=== PATIENT | male | born 1985 | race Caucasian/White ===

== ENCOUNTER 2018-04-23 20:40 | Emergency (ER) | payer OTHER ==
[~2018-04-23] VITALS: Ht 175.3 cm; Wt 74.8 kg
--- NOTE | 2018-04-23 20:45 | NUR ---
32YO male bb self. 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 patient denies SOB, N/V or any other medical complaints. patient assisted to er bed, skin warmn and dry, resp even and unlabored. 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 awaiting orders from provider, will continue to monitor
--- NOTE | 2018-04-23 20:51 | NUR ---
MD Duboism at bed side for eval
[2018-04-23] MEDS ORDERED: MECLIZINE HCL 25 MG TABLET ONE (21:04)
--- NOTE | 2018-04-23 21:11 | NUR ---
MEDICATED PT ORDERED
--- NOTE | 2018-04-23 21:12 | NUR ---
20g left ac iv started, blood sample obtained and sent to lab
[2018-04-23 21:13] LABS: BASOPHILS # (AUTO) 0.1 /CMM (0.0-0.2); BASOPHILS % (AUTO) 1.3 % (0.0-2.0); EOSINOPHILS % (AUTO) 1.1 % (0.0-6.0); HEMATOCRIT 45 % (39-51); HEMOGLOBIN 16.2 g/dL (13.5-17.5); LYMPHOCYTES # (AUTO) 1.9 /CMM (0.8-4.8); LYMPHOCYTES % (AUTO) 18.6 % (20.0-44.0); MEAN CORPUSCULAR HEMOGLOBIN 31 PG (26.0-33.0); MEAN CORPUSCULAR HGB CONC 36 g/dl (31.0-36.0); MEAN CORPUSCULAR VOLUME 87 fL (80-96); MONOCYTES # (AUTO) 0.5 /CMM (0.1-1.30); MONOCYTES % (AUTO) 5.1 % (2.0-12.0); NEUTROPHILS # (AUTO) 7.6 /CMM (1.8-8.9); NEUTROPHILS % (AUTO) 73.9 % (43.0-81.0); PLATELET COUNT (AUTO) 179 /CMM (150-450); RDW COEFFICIENT OF VARIATION 11.6 (11.5-15.0); RED BLOOD CELL COUNT(AUTO) 5.21 MIL/uL (4.5-6.0); WHITE BLOOD COUNT (AUTO) 10.2 K/uL (4.3-11.0)
[2018-04-23 21:23] LABS: CALCIUM, SERUM 9.4 mg/dL (8.5-10.1); CARBON DIOXIDE 29 mmol/L (21-32); CHLORIDE 105 mmol/L (98-107); CREATININE 0.8 mg/dL (0.6-1.3); GLUCOSE 108 mg/dL (74-106); POTASSIUM 3.9 mmol/L (3.5-5.1); SODIUM SERUM 140 mmol/L (136-145); UREA NITROGEN, BLOOD 9 mg/dL (7-18)
[2018-04-23 21:27] LABS: INR 0.95 (0.85-1.15)
[2018-04-23] MEDS ORDERED: MECLIZINE HCL 25 MG TABLET PO ONE (21:30)
[2018-04-23 21:32] LABS: TROPONIN I < 0.017 ng/mL (0.00-0.056)
--- NOTE | 2018-04-23 21:36 | NUR ---
patient is pain free at this time, no distress noted. patient complains of dizzyness
[2018-04-23 21:54] VITALS: BP 147/78
--- NOTE | 2018-04-23 21:55 | NUR ---
Patient discharged to home in stable condition. Written and verbal after care instructions given. Patient verbalizes understanding of instruction. pt ambulatory with a steady gait VITAL SIGNS WITHIN NORMAL LIMITS.IV removed. Catheter intact and site benign. Pressure and 4x4 applied to site. No bleeding noted.
== END 2018-04-23 21:55 | disposition home or self-care (01) ==
LOC: ER 20:43
DX: R42 Dizziness and giddiness (principal); R07.2 Precordial pain; F17.210 Nicotine dependence, cigarettes, uncomplicated
CPT/HCPCS: 36415; 70450-TC; 71045-TC; 80048-TC; 84484-TC; 85025-TC; 85730-TC; A4606; J8597; Z7610

== ENCOUNTER 2018-07-20 03:59 | Emergency (ER) | payer OTHER ==
[~2018-07-20] VITALS: Ht 172.7 cm; Wt 81.6 kg
[2018-07-20 04:19] VITALS: BP 132/82
--- NOTE | 2018-07-20 04:21 | NUR ---
PATIENT AMBULATORY TO ER BED 10. BIBFAMILY C/O CP NONRADIATING X 3 HRS. NO CARDAIC HX NOTED. PATIENT STATES HE HAS HAD SEVERAL "PANIC ATTACKS" TONIGHT AND TOOK HIS MOTHER ATENOLOL 0.5 MG AT 0100. HE STATES HIS B/P WAS SYSTOLIC IN THE 180'S. 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 VSS/RESP EVEN UNLABORED/NAD NOTED/SKIN WARM AND DRY/AFEBRILE/ DENIES N-V-D/AOX4. AWAITNG MD TRONCOSO.
[2018-07-20] MEDS ORDERED: LORAZEPAM 1 MG TABLET PO ONE (04:30)
[2018-07-20] MEDS ORDERED: LORAZEPAM 1 MG TABLET ONE (04:34)
== END 2018-07-20 04:52 | disposition home or self-care (01) ==
LOC: ER 04:02
DX: F41.0 Panic disorder [episodic paroxysmal anxiety] (principal); F17.200 Nicotine dependence, unspecified, uncomplicated
CPT/HCPCS: A4606; Z7610

== ENCOUNTER 2019-03-05 19:25 | Emergency (ER) | payer OTHER ==
[~2019-03-05] VITALS: Ht 172.7 cm; Wt 81.6 kg
--- NOTE | 2019-03-05 19:36 | NUR ---
PT AMBULATORY TO ER BED 09. C/O HEADACHE AND HIGH BLOOD PRESSURE SINCE THIS AM. PT PLACED ON MONITOR. STABLE VITALS AT THIS TIME. AWAITING MD TRONCOSO.
--- NOTE | 2019-03-05 19:48 | NUR ---
GAELP PA AT BEDSIDE FOR EVAL.
--- NOTE | 2019-03-05 20:02 | NUR ---
FILAMENT CUTTER AT BEDSIDE FOR BLOOD DRAW.
[2019-03-05 20:09] LABS: BASOPHILS % (AUTO) 0.5 % (0.0-2.0); EOSINOPHILS % (AUTO) 0.9 % (0.0-6.0); HEMATOCRIT 44 % (39-51); HEMOGLOBIN 15.3 g/dL (13.5-17.5); LYMPHOCYTES # (AUTO) 1.5 /CMM (0.8-4.8); LYMPHOCYTES % (AUTO) 16.7 % (20.0-44.0); MEAN CORPUSCULAR HGB CONC 35 g/dl (31.0-36.0); MEAN CORPUSCULAR VOLUME 88 fL (80-96); MONOCYTES # (AUTO) 0.4 /CMM (0.1-1.30); MONOCYTES % (AUTO) 4.5 % (2.0-12.0); NEUTROPHILS # (AUTO) 7.2 /CMM (1.8-8.9); NEUTROPHILS % (AUTO) 77.4 % (43.0-81.0); PLATELET COUNT (AUTO) 183 /CMM (150-450); RED BLOOD CELL COUNT(AUTO) 5.02 MIL/uL (4.5-6.0); WHITE BLOOD COUNT (AUTO) 9.3 K/uL (4.3-11.0)
[2019-03-05 20:15] LABS: CALCIUM, SERUM 9.4 mg/dL (8.5-10.1); CARBON DIOXIDE 26 mmol/L (21-32); CHLORIDE 104 mmol/L (98-107); CREATININE 0.6 mg/dL (0.6-1.3); GLUCOSE 109 mg/dL (74-106); POTASSIUM 3.5 mmol/L (3.5-5.1); SODIUM SERUM 141 mmol/L (136-145); UREA NITROGEN, BLOOD 5 mg/dL (7-18)
--- NOTE | 2019-03-05 21:28 | NUR ---
REPORT TO JONATHAN TOSCANO FOR LORE.
[2019-03-05] MEDS ORDERED: IV NS 0.9% 1,000 ML BAG IV ONE (21:30)
[2019-03-05 23:38] VITALS: BP 118/70
--- NOTE | 2019-03-05 23:38 | NUR ---
Patient discharged to home in stable condition. Written and verbal after care instructions given. Patient verbalizes understanding of instruction. IV removed. Catheter intact and site benign. Pressure and 4x4 applied to site. No bleeding noted.
== END 2019-03-05 23:39 | disposition home or self-care (01) ==
LOC: ER 19:31
DX: R07.89 Other chest pain (principal); R00.2 Palpitations; R94.31 Abnormal electrocardiogram [ECG] [EKG]; I10 Essential (primary) hypertension; F41.9 Anxiety disorder, unspecified; F17.200 Nicotine dependence, unspecified, uncomplicated; I45.10 Unspecified right bundle-branch block
CPT/HCPCS: 36415; 71045; 80048; 84484; 85025; 93005; 99284; J7030

== ENCOUNTER 2019-03-11 19:43 | Emergency (ER) | payer OTHER ==
[~2019-03-11] VITALS: Ht 172.7 cm; Wt 81.6 kg
[2019-03-11 19:57] VITALS: BP 170/103
[2019-03-11 20:27] LABS: BASOPHILS # (AUTO) 0.1 /CMM (0.0-0.2); BASOPHILS % (AUTO) 0.9 % (0.0-2.0); EOSINOPHILS % (AUTO) 1.1 % (0.0-6.0); HEMATOCRIT 45 % (39-51); LYMPHOCYTES # (AUTO) 1.8 /CMM (0.8-4.8); LYMPHOCYTES % (AUTO) 23.3 % (20.0-44.0); MEAN CORPUSCULAR HGB CONC 35 g/dl (31.0-36.0); MEAN CORPUSCULAR VOLUME 89 fL (80-96); MONOCYTES # (AUTO) 0.5 /CMM (0.1-1.30); MONOCYTES % (AUTO) 6.1 % (2.0-12.0); NEUTROPHILS # (AUTO) 5.5 /CMM (1.8-8.9); NEUTROPHILS % (AUTO) 68.6 % (43.0-81.0); PLATELET COUNT (AUTO) 203 /CMM (150-450); WHITE BLOOD COUNT (AUTO) 7.9 K/uL (4.3-11.0)
--- NOTE | 2019-03-11 20:32 | NUR ---
PT REFUSES IMAGING. NOTIFIED
[2019-03-11 20:43] LABS: ALANINE AMINOTRANSFERASE 37 U/L (12-78); ALBUMIN 4.4 g/dL (3.4-5.0); ALKALINE PHOSPHATASE 69 U/L (46-116); ASPARTATE AMINOTRANSFERASE 15 U/L (15-37); BILIRUBIN,DIRECT 0.1 mg/dL (0.0-0.2); BILIRUBIN,TOTAL 0.4 mg/dL (0.2-1.0); CARBON DIOXIDE 28 mmol/L (21-32); CHLORIDE 103 mmol/L (98-107); CREATININE 0.6 mg/dL (0.6-1.3); GLUCOSE 100 mg/dL (74-106); POTASSIUM 3.8 mmol/L (3.5-5.1); SODIUM SERUM 141 mmol/L (136-145); TOTAL PROTEIN, SERUM 7.9 g/dL (6.4-8.2); UREA NITROGEN, BLOOD 6 mg/dL (7-18)
== END 2019-03-11 21:10 | disposition home or self-care (01) ==
LOC: ER 19:43
DX: I10 Essential (primary) hypertension (principal); F17.200 Nicotine dependence, unspecified, uncomplicated
CPT/HCPCS: 36415; 80048-TC; 80076-TC; 84484-TC; 85025-TC; 85730-TC

== ENCOUNTER 2019-04-02 01:28 | Emergency (ER) | payer OTHER ==
[~2019-04-02] VITALS: Ht 172.7 cm; Wt 81.6 kg
--- NOTE | 2019-04-02 01:44 | NUR ---
BIBS FOR C/O PALPITATION. REPORTED " A LOT OF PVCs AND WS TOLD BY HIS PCP TO COME TO THE ER" PT WAS PLACED ON A MONITOR ,VSS. WILL CONT TO MONITOR ,
--- NOTE | 2019-04-02 02:10 | NUR ---
microbiology lab technician at the bed side
--- NOTE | 2019-04-02 02:25 | NUR ---
PT REFUSED CXR. AWARE
[2019-04-02 02:30] LABS: CALCIUM, SERUM 9.3 mg/dL (8.5-10.1); CREATININE 0.6 mg/dL (0.6-1.3); POTASSIUM 4.5 mmol/L (3.5-5.1)
--- NOTE | 2019-04-02 03:19 | NUR ---
Patient discharged to home in stable condition. Written and verbal after care instructions given. Patient verbalizes understanding of instruction.
[2019-04-02 03:20] VITALS: BP 109/77
== END 2019-04-02 03:21 | disposition home or self-care (01) ==
LOC: ER 01:29
DX: R00.2 Palpitations (principal); F17.200 Nicotine dependence, unspecified, uncomplicated; F41.9 Anxiety disorder, unspecified; I10 Essential (primary) hypertension
CPT/HCPCS: 36415; 80048-TC

== ENCOUNTER 2019-04-15 11:51 | Emergency (ER) | payer OTHER ==
[~2019-04-15] VITALS: Ht 172.7 cm; Wt 81.6 kg
--- NOTE | 2019-04-15 12:03 | NUR ---
PT BIB SELF C/O L SIDED CHEST PAIN, PALPITATION, ON AND OFF X 5 MONTHS, PT IS AAOX4, NOT IN RESPIRATORY DISTRESS, V/S STABLE, KEPT RESTED AND COMFORTABLE, WILL CONTINUE TO MONITOR.
--- NOTE | 2019-04-15 12:20 | NUR ---
SEEN AND EXAMINED BY AFTAB A[place]IN
--- NOTE | 2019-04-15 12:46 | NUR ---
ER PHLEB AT BEDSIDE FOR BLOOD DRAW.
--- NOTE | 2019-04-15 12:50 | NUR ---
Usama baltazar in ED - 04/15/19 at 1314 by SCOTTY [employer]UCK RENTAL SERVICE ATTENDANT AT [facility] FOR XRAY.
[2019-04-15 13:13] LABS: CALCIUM, SERUM 8.9 mg/dL (8.5-10.1); CREATININE 0.6 mg/dL (0.6-1.3); POTASSIUM 4.1 mmol/L (3.5-5.1)
--- NOTE | 2019-04-15 13:38 | NUR ---
Patient discharged to home in stable condition. Written and verbal after care instructions given. Patient verbalizes understanding of instruction.
[2019-04-15 13:40] VITALS: BP 146/87
[2019-04-15] MEDS ORDERED: IOHEXOL-350 100 ML VIAL IV ONE (21:16)
[2019-04-15] MEDS ORDERED: IV NS 0.9% 250 ML IV ONE (21:17)
[2019-04-15] MEDS ORDERED: CT SWABBABLE VALVE TRANS SET 1 EA INFUS.SET MC ONE (21:17)
[2019-04-16] MEDS ORDERED: DIAZ2TAB PO (08:52)
[2019-04-16] MEDS ORDERED: GUAN1TAB2 PO (08:52)
== END 2019-04-15 13:40 | disposition home or self-care (01) ==
LOC: ER 11:54
DX: I49.8 Other specified cardiac arrhythmias (principal); R00.2 Palpitations; I10 Essential (primary) hypertension; F17.200 Nicotine dependence, unspecified, uncomplicated
CPT/HCPCS: 36415; 80048; 93005; 99284; J7050; Q9967

== ENCOUNTER 2019-04-15 20:37 | Inpatient (IN) | payer OTHER ==
[~2019-04-15] VITALS: Ht 175.3 cm; Wt 84.4 kg
[2019-04-15] MEDS ORDERED: METOCLOPRAMIDE HCL 10 MG/2 ML VIAL IV ONE (21:00)
[2019-04-15] MEDS ORDERED: KETOROLAC TROMETHAMINE INJ 30 MG/ML VIAL IV ONE (21:00)
[2019-04-15] MEDS ORDERED: KETOROLAC TROMETHAMINE 15 MG/ML VIAL ONE (21:10)
[2019-04-15] MEDS ORDERED: METOCLOPRAMIDE HCL 10 MG/2 ML VIAL ONE (21:10)
[2019-04-15 21:11] LABS: BASOPHILS # (AUTO) 0.1 /CMM (0.0-0.2); EOSINOPHILS % (AUTO) 1.5 % (0.0-6.0); HEMATOCRIT 43 % (39-51); LYMPHOCYTES # (AUTO) 1.8 /CMM (0.8-4.8); LYMPHOCYTES % (AUTO) 22.7 % (20.0-44.0); MEAN CORPUSCULAR HGB CONC 35 g/dl (31.0-36.0); MEAN CORPUSCULAR VOLUME 88 fL (80-96); MONOCYTES # (AUTO) 0.5 /CMM (0.1-1.30); NEUTROPHILS # (AUTO) 5.6 /CMM (1.8-8.9); NEUTROPHILS % (AUTO) 68.8 % (43.0-81.0); PLATELET COUNT (AUTO) 194 /CMM (150-450); RED BLOOD CELL COUNT(AUTO) 4.87 MIL/uL (4.5-6.0); WHITE BLOOD COUNT (AUTO) 8.1 K/uL (4.3-11.0)
[2019-04-15 21:17] LABS: CALCIUM, SERUM 8.8 mg/dL (8.5-10.1); CREATININE 0.6 mg/dL (0.6-1.3); POTASSIUM 3.6 mmol/L (3.5-5.1)
[2019-04-16 01:30] VITALS: BP 132/87
[2019-04-16] MEDS ORDERED: KETOROLAC TROMETHAMINE INJ 30 MG/ML VIAL IM PRN (02:30)
[2019-04-16] MEDS ORDERED: MORPHINE SULFATE INJ 2 MG/ML DISP.SYRIN IV PRN (02:30)
[2019-04-16] MEDS ORDERED: MAG HYDROX/AL HYDROX/SIMETH 30 ML UDC PO PRN (02:30)
[2019-04-16] MEDS ORDERED: HYDROCODONE/APAP 5/325MG 1 EACH TABLET PO PRN (02:30)
[2019-04-16] MEDS ORDERED: MAGNESIUM HYDROXIDE 30 ML UDC PO PRN (02:30)
[2019-04-16] MEDS ORDERED: ZOLPIDEM TARTRATE 5 MG TABLET PO PRN (02:30)
[2019-04-16] MEDS ORDERED: Z GUARD REMEDY 2 OZ OINT TP PRN (02:30)
[2019-04-16] MEDS ORDERED: ACETAMINOPHEN 325 MG TABLET PO PRN (02:30)
[2019-04-16] MEDS ORDERED: ONDANSETRON HCL/PF 4 MG/2 ML VIAL IVP PRN (02:30)
[2019-04-16 08:00] VITALS: BP 102/65
[2019-04-16] MEDS ORDERED: KETOROLAC TROMETHAMINE 15 MG/ML VIAL IM PRN (08:43)
[2019-04-16] MEDS ORDERED: GUAN1TAB2 PO (08:52)
[2019-04-16] MEDS ORDERED: DIAZ2TAB PO (08:52)
[2019-04-16 16:00] VITALS: BP 143/84
[2019-04-16] MEDS ORDERED: DIAZEPAM 2 MG TABLET PO PRN (16:30)
[2019-04-16] MEDS ORDERED: GUANFACINE HCL 0.5 MG PO SCH (17:00)
[2019-04-16 17:37] LABS: CALCIUM, SERUM 9.2 mg/dL (8.5-10.1); CREATININE 0.6 mg/dL (0.6-1.3); POTASSIUM 3.7 mmol/L (3.5-5.1)
[2019-04-16 19:30] VITALS: BP 123/77
== END 2019-04-16 19:50 | disposition home or self-care (01) | DRG 552 ==
LOC: ER 20:38 → TELE 04-16 00:48 → MED 04-16 02:44
PROVIDERS: ADMIT Internal Medicine; ATTEND Family Medicine
DX: M48.02 Spinal stenosis, cervical region (principal); I10 Essential (primary) hypertension; I49.8 Other specified cardiac arrhythmias; D18.09 Hemangioma of other sites; M25.78 Osteophyte, vertebrae; M54.12 Radiculopathy, cervical region
CPT/HCPCS: 36415; 70450-TC; 70492; 70496-TC; 70498-TC; 72125-TC; 72141-TC; 80048-TC; 85025-TC; 87081-TC; G0378; J1885; J2765

== ENCOUNTER 2019-04-24 23:59 | Emergency (ER) | payer OTHER ==
[~2019-04-24] VITALS: Ht 172.7 cm; Wt 81.6 kg
[~2019-04-24 23:59] MED LIST: DIAZ2TAB PO; GUAN1TAB2 PO
--- NOTE | 2019-04-25 00:06 | NUR ---
PT BIBMOTHER C/C "THUMPS IN MY CHEST" X3 HRS, +DIZZINESS, -SCHAEFER. PT AOX4. PT AMBULATORY WITH STEADY GAIT. PT ON MONITOR IN BED 5 WITH MOTHER AT BEDSIDE. WILL CONTINUE TO MONITOR.
--- NOTE | 2019-04-25 00:08 | NUR ---
TECH AT BEDSIDE FOR EKG
--- NOTE | 2019-04-25 00:20 | NUR ---
PHLEB AT BEDSIDE FOR LAB DRAW
[2019-04-25 00:38] LABS: CALCIUM, SERUM 8.8 mg/dL (8.5-10.1); CREATININE 0.6 mg/dL (0.6-1.3); POTASSIUM 3.7 mmol/L (3.5-5.1)
--- NOTE | 2019-04-25 01:00 | NUR ---
PT OK TO DISCHARGE PER DR THOMAS. Patient discharged to home in stable condition. Written and verbal after care instructions given. Patient verbalizes understanding of instruction.Patient is awake and alert to self, day, and place. PT ambulatory with a steady gait
[2019-04-25 01:01] VITALS: BP 125/74
== END 2019-04-25 01:01 | disposition home or self-care (01) ==
LOC: ER 04-25 00:05
DX: R00.2 Palpitations (principal); I10 Essential (primary) hypertension; F17.200 Nicotine dependence, unspecified, uncomplicated; Z79.899 Other long term (current) drug therapy
CPT/HCPCS: 36415; 80048-TC

== ENCOUNTER 2019-05-17 16:19 | Emergency (ER) | payer OTHER ==
[~2019-05-17] VITALS: Ht 167.6 cm; Wt 81.6 kg
[2019-05-17 16:34] VITALS: BP 125/96
[2019-05-17 16:51] LABS: BASOPHILS % (AUTO) 0.7 % (0.0-2.0); EOSINOPHILS % (AUTO) 0.5 % (0.0-6.0); HEMATOCRIT 44 % (39-51); HEMOGLOBIN 15.3 g/dL (13.5-17.5); LYMPHOCYTES # (AUTO) 1.6 /CMM (0.8-4.8); LYMPHOCYTES % (AUTO) 23.4 % (20.0-44.0); MEAN CORPUSCULAR HGB CONC 35 g/dl (31.0-36.0); MEAN CORPUSCULAR VOLUME 88 fL (80-96); MONOCYTES # (AUTO) 0.4 /CMM (0.1-1.30); MONOCYTES % (AUTO) 6.3 % (2.0-12.0); NEUTROPHILS # (AUTO) 4.6 /CMM (1.8-8.9); NEUTROPHILS % (AUTO) 69.1 % (43.0-81.0); PLATELET COUNT (AUTO) 178 /CMM (150-450); RED BLOOD CELL COUNT(AUTO) 5.04 MIL/uL (4.5-6.0); WHITE BLOOD COUNT (AUTO) 6.6 K/uL (4.3-11.0)
[2019-05-17 17:03] LABS: ALBUMIN 4.2 g/dL (3.4-5.0); BILIRUBIN,DIRECT 0.1 mg/dL (0.0-0.2); BILIRUBIN,TOTAL 0.4 mg/dL (0.2-1.0); CALCIUM, SERUM 9.1 mg/dL (8.5-10.1); CREATININE 0.7 mg/dL (0.6-1.3); POTASSIUM 4.1 mmol/L (3.5-5.1); TOTAL PROTEIN, SERUM 7.4 g/dL (6.4-8.2)
== END 2019-05-17 17:20 | disposition home or self-care (01) ==
LOC: ER 16:24
DX: R53.1 Weakness (principal); R00.0 Tachycardia, unspecified; I10 Essential (primary) hypertension; F17.200 Nicotine dependence, unspecified, uncomplicated; Z79.899 Other long term (current) drug therapy
CPT/HCPCS: 36415; 80048-TC; 80076-TC; 83690-TC; 85025-TC

== ENCOUNTER 2019-05-21 17:01 | Emergency (ER) | payer OTHER ==
[~2019-05-21] VITALS: Ht 172.7 cm; Wt 81.6 kg
--- NOTE | 2019-05-21 17:22 | NUR ---
""HIGH BP AND PALPITATIONS SINCE 8AM THIS MORNING WITH HEADACHE" PT AAOX4, -SOB, NAD NOTED, VSS, PENDING MD TRONCOSO
[2019-05-21 18:01] LABS: BASOPHILS # (AUTO) 0.1 /CMM (0.0-0.2); BASOPHILS % (AUTO) 0.7 % (0.0-2.0); HEMATOCRIT 47 % (39-51); LYMPHOCYTES # (AUTO) 1.7 /CMM (0.8-4.8); LYMPHOCYTES % (AUTO) 21.2 % (20.0-44.0); MEAN CORPUSCULAR HGB CONC 34 g/dl (31.0-36.0); MEAN CORPUSCULAR VOLUME 88 fL (80-96); MONOCYTES # (AUTO) 0.6 /CMM (0.1-1.30); NEUTROPHILS # (AUTO) 5.5 /CMM (1.8-8.9); NEUTROPHILS % (AUTO) 70.1 % (43.0-81.0); PLATELET COUNT (AUTO) 170 /CMM (150-450); WHITE BLOOD COUNT (AUTO) 7.9 K/uL (4.3-11.0)
[2019-05-21 18:10] VITALS: BP 139/90
[2019-05-21 18:14] LABS: ALBUMIN 4.4 g/dL (3.4-5.0); BILIRUBIN,DIRECT 0.1 mg/dL (0.0-0.2); BILIRUBIN,TOTAL 0.4 mg/dL (0.2-1.0); CALCIUM, SERUM 9.2 mg/dL (8.5-10.1); CREATININE 0.6 mg/dL (0.6-1.3); POTASSIUM 3.5 mmol/L (3.5-5.1); TOTAL PROTEIN, SERUM 7.6 g/dL (6.4-8.2)
[2019-05-21] MEDS ORDERED: POTASSIUM CHLORIDE 20 MEQ TAB.PRT.SR PO ONE ×3 (18:46→19:00)
--- NOTE | 2019-05-21 18:51 | NUR ---
Patient discharged to home in stable condition. Written and verbal after care instructions given. Patient verbalizes understanding of instruction.
== END 2019-05-21 18:58 | disposition home or self-care (01) ==
LOC: ER 17:05
DX: R00.2 Palpitations (principal); I10 Essential (primary) hypertension; R00.0 Tachycardia, unspecified; F17.200 Nicotine dependence, unspecified, uncomplicated
CPT/HCPCS: 36415; 80048-TC; 80076-TC; 83690-TC; 85025-TC

== ENCOUNTER 2020-09-28 15:17 | Emergency (ER) | payer BC, OTHER ==
[~2020-09-28] VITALS: Ht 172.7 cm; Wt 82.6 kg
[2020-09-28 15:25] VITALS: BP 136/78
--- NOTE | 2020-09-28 16:21 | NUR ---
GOT THE PCR SWAB BUT PATIENT IS NOT IN TREATMENT AREA
--- NOTE | 2020-09-28 17:10 | NUR ---
SPOKE WITH SYLVESTER AND SAID THAT HE COULDN'T WAIT BUT WILL TRY TO COME BACK. TOLD HIM THAT I WILL HOLD THE SWAB TO THE END OF MY SHIFT AND NOT SURE IF THE NEXT SHIFT WILL DO IT FOR HIM
== END 2020-09-28 17:13 | disposition home or self-care (01) ==
LOC: ER 15:18
DX: R00.2 Palpitations (principal); J06.9 Acute upper respiratory infection, unspecified; I10 Essential (primary) hypertension; F17.200 Nicotine dependence, unspecified, uncomplicated; Z79.899 Other long term (current) drug therapy

== ENCOUNTER 2020-11-07 13:07 | Emergency (ER) | payer BC ==
[~2020-11-07] VITALS: Ht 172.7 cm; Wt 90.7 kg
--- NOTE | 2020-11-07 13:10 | NUR ---
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 SINUS RHYTHM NOTED. DR PEREYRA AT BEDSIDE
[2020-11-07 13:37] LABS: BASOPHILS # (AUTO) 0.1 /CMM (0.0-0.2); BASOPHILS % (AUTO) 0.8 % (0.0-2.0); EOSINOPHILS % (AUTO) 1.1 % (0.0-6.0); HEMATOCRIT 42 % (39-51); HEMOGLOBIN 14.3 g/dL (13.5-17.5); LYMPHOCYTES # (AUTO) 1.3 /CMM (0.8-4.8); LYMPHOCYTES % (AUTO) 17.6 % (20.0-44.0); MEAN CORPUSCULAR HGB CONC 34 g/dl (31.0-36.0); MEAN CORPUSCULAR VOLUME 86 fL (80-96); MONOCYTES # (AUTO) 0.5 /CMM (0.1-1.30); MONOCYTES % (AUTO) 6.9 % (2.0-12.0); NEUTROPHILS # (AUTO) 5.6 /CMM (1.8-8.9); NEUTROPHILS % (AUTO) 73.6 % (43.0-81.0); PLATELET COUNT (AUTO) 203 /CMM (150-450); WHITE BLOOD COUNT (AUTO) 7.6 K/uL (4.3-11.0)
[2020-11-07 13:51] LABS: CALCIUM, SERUM 9.4 mg/dL (8.5-10.1); CARBON DIOXIDE 29 mmol/L (21-32); CHLORIDE 104 mmol/L (98-107); CREATININE 0.7 mg/dL (0.6-1.3); GLUCOSE 111 mg/dL (74-106); POTASSIUM 3.7 mmol/L (3.5-5.1); SODIUM SERUM 140 mmol/L (136-145); UREA NITROGEN, BLOOD 9 mg/dL (7-18)
--- NOTE | 2020-11-07 14:22 | NUR ---
Patient discharged to home in stable condition. Written and verbal after care instructions given. Patient verbalizes understanding of instruction.
[2020-11-07 14:23] VITALS: BP 140/78
== END 2020-11-07 14:24 | disposition home or self-care (01) ==
LOC: ER 13:09
DX: R07.89 Other chest pain (principal); I10 Essential (primary) hypertension; F17.200 Nicotine dependence, unspecified, uncomplicated; Z79.899 Other long term (current) drug therapy
CPT/HCPCS: 36415; 80048-TC; 84484-TC; 85025-TC

== ENCOUNTER 2024-09-15 19:45 | Emergency (ER) | payer BC, OTHER ==
[~2024-09-15] VITALS: Ht 172.7 cm; Wt 99.8 kg
[2024-09-15 20:36] LABS: BASOPHILS # (AUTO) 0.1 K/uL (0.0-0.2); BASOPHILS % (AUTO) 1.2 % (0.0-2.0); EOSINOPHILS # (AUTO) 0.1 K/uL (0.0-0.7); EOSINOPHILS % (AUTO) 1.1 % (0.0-6.0); HEMATOCRIT 42 % (39-51); HEMOGLOBIN 14.8 g/dL (13.5-17.5); LYMPHOCYTES # (AUTO) 1.8 K/uL (0.8-4.8); LYMPHOCYTES % (AUTO) 21.2 % (20.0-44.0); MEAN CORPUSCULAR HEMOGLOBIN 30 PG (26.0-33.0); MEAN CORPUSCULAR HGB CONC 35 g/dl (31.0-36.0); MEAN CORPUSCULAR VOLUME 86 fL (80-96); MONOCYTES # (AUTO) 0.6 K/uL (0.1-1.30); MONOCYTES % (AUTO) 6.6 % (2.0-12.0); NEUTROPHILS # (AUTO) 5.9 K/uL (1.8-8.9); NEUTROPHILS % (AUTO) 69.9 % (43.0-81.0); PLATELET COUNT (AUTO) 180 K/uL (150-450); RED BLOOD CELL COUNT(AUTO) 4.94 MIL/uL (4.5-6.0); RED CELL DISTRIBUTION WIDTH 13.7 % (11.5-15.0); WHITE BLOOD COUNT (AUTO) 8.5 K/uL (4.3-11.0)
[2024-09-15 20:43] LABS: CARBON DIOXIDE 28 mmol/L (21-32); CHLORIDE 105 mmol/L (98-107); CREATININE 0.6 mg/dL (0.6-1.3); GLUCOSE 111 mg/dL (74-106); POTASSIUM 3.6 mmol/L (3.5-5.1); SODIUM SERUM 140 mmol/L (136-145); UREA NITROGEN, BLOOD 10 mg/dL (7-18)
[2024-09-15 22:00] VITALS: BP 118/90; TEMP 98.6; O2SAT 99
== END 2024-09-15 22:01 | disposition home or self-care (01) ==
LOC: ER 19:51
DX: R07.89 Other chest pain (principal); R06.02 Shortness of breath; R94.31 Abnormal electrocardiogram [ECG] [EKG]; F17.200 Nicotine dependence, unspecified, uncomplicated; I10 Essential (primary) hypertension; Z86.59 Personal history of other mental and behavioral disorders; Z86.79 Personal history of other diseases of the circulatory system
CPT/HCPCS: 36415; 71045-TC; 80048-TC; 84484-TC; 85025-TC

== ENCOUNTER 2025-04-05 14:06 | Emergency (ER) | payer BC ==
[~2025-04-05] VITALS: Ht 175.3 cm; Wt 99.8 kg
[2025-04-05 14:16] VITALS: BP 171/85; TEMP 85
[2025-04-05] MEDS ORDERED: CYCL5TAB PO (16:06)
[2025-04-05 16:22] VITALS: O2SAT 97
== END 2025-04-05 16:24 | disposition home or self-care (01) ==
LOC: ER 14:10
DX: S13.4XXA Sprain of ligaments of cervical spine, initial encounter (principal); M54.12 Radiculopathy, cervical region; F17.200 Nicotine dependence, unspecified, uncomplicated; I10 Essential (primary) hypertension; Z86.79 Personal history of other diseases of the circulatory system; Z87.39 Personal history of other diseases of the musculoskeletal system and connective tissue; Z86.59 Personal history of other mental and behavioral disorders; V89.2XXA Person injured in unspecified motor-vehicle accident, traffic, initial encounter; Y93.89 Activity, other specified; Y92.488 Other paved roadways as the place of occurrence of the external cause; Y99.8 Other external cause status
CPT/HCPCS: 72125-TC